=== PATIENT | male | born 1950 | race Caucasian/White ===

== ENCOUNTER → 2020-10-01 | Outpatient (CLI) | payer OTHER ==
[~2020-10-01] MED LIST: ADULT ASPIRIN R81 MG PO; EFFIENT10 MG PO; FISH OIL 1,0001 EAC9 PO; LIPITOR40 MG PO; MULTI VITAMIN1 EACH PO; NITROSTAT0.4 M1; TOPROL XL25 MG PO
== END ==
LOC: SJCVC 01:00
PROVIDERS: ATTEND Internal Medicine
DX: R94.31 Abnormal electrocardiogram [ECG] [EKG] (principal); R07.9 Chest pain, unspecified; I25.118 Atherosclerotic heart disease of native coronary artery with other forms of angina pectoris; E11.9 Type 2 diabetes mellitus without complications; E78.5 Hyperlipidemia, unspecified; R00.2 Palpitations; Z88.8 Allergy status to other drugs, medicaments and biological substances; Z79.82 Long term (current) use of aspirin; Z79.899 Other long term (current) drug therapy

== ENCOUNTER → 2020-10-02 | Outpatient (CLI) | payer OTHER | LOC: SJCVCIMAG 12:32 | PROVIDERS: ATTEND Internal Medicine | DX: R00.0 Tachycardia, unspecified (principal); I51.7 Cardiomegaly; I25.118 Atherosclerotic heart disease of native coronary artery with other forms of angina pectoris; Z79.82 Long term (current) use of aspirin; Z79.899 Other long term (current) drug therapy ==

== ENCOUNTER 2020-10-08 06:28 | Observation (INO) | payer OTHER ==
[~2020-10-08] VITALS: Ht 190.5 cm; Wt 128.5 kg
[2020-10-08 07:06] VITALS: BP 138/71
[2020-10-08 07:25] LABS: HEMATOCRIT 41.9 % (42.0-52.0); HEMOGLOBIN 13.9 gm/dL (14.0-18.0); MCH 28.1 pg (26.0-34.0); MCHC 33.1 g/dL (28.0-37.0); MCV 84.9 fL (80.0-100.0); RBC 4.94 mil/uL (4.50-6.00); RDW 15.1 % (10.5-14.5); WBC 6.7 thou/uL (4.0-11.0)
[2020-10-08] MEDS ORDERED: TOPROL XL25 MG PO (07:28)
[2020-10-08] MEDS ORDERED: LIPITOR40 MG PO (07:29)
[2020-10-08] MEDS ORDERED: NITROSTAT0.4 M1 (07:30)
[2020-10-08] MEDS ORDERED: ADULT ASPIRIN R81 MG PO (07:31)
[2020-10-08] MEDS ORDERED: FISH OIL 1,0001 EAC9 PO (07:32)
[2020-10-08] MEDS ORDERED: MULTI VITAMIN1 EACH PO (07:32)
[2020-10-08 07:34] LABS: CALCIUM 9.2 mg/dL (8.5-10.1); CREATININE 1.2 mg/dL (0.7-1.3)
[2020-10-08 13:30] VITALS: BP 117/72
[2020-10-08 13:45] VITALS: BP 131/71
--- NOTE | 2020-10-08 14:14 | NUR ---
ASSUMED CARE OF PT AT APPROX 1230 FROM [employer]. GROIN SITE CDI NO BRUISING OR HEMATOMA. NO C/O PAIN OR DISTRESS. PT ORIENTED TO ROOM AND SETTLE IN. ADMISSION COMPLETE. WILL CONTINUE TO MONITOR FOR CHANGE AND FOLLOW POC.
[2020-10-08 14:51] VITALS: BP 135/76
[2020-10-08] MEDS ORDERED: EFFIENT10 MG PO (15:22)
--- NOTE | 2020-10-08 16:12 | CATHLAB ---
[facility] [place] [address] INVASIVE PROCEDURE REPORT Name: ZEKE FELIPE JR Room #: 201-P ADM Jen Souza#: [id number] Admission: 10/08/20 Attend Phys: Riley Márquez MD, Discharge: Date of : 48 Report #: [id number] THIS REPORT FOR: cc: Braulio Pillai Gregory DO Mancuso, Gerald M. MD [facility] ~ APPROVED REPORT Study performed: 10/08/2020 07:44:07 Patient Details Patient Status: Out-Patient Room #: The patient is a 70 year-old male Event Personnel Riley Márquez System Configuration Specialist, Tracy Juárez RN RN, Patricia Broges RTR, Darin Reardon Roberta Monitor Procedures Performed Art Access - R femoral artery* Left Heart Cath w/or w/o Coronaries [id number] [facility] JEROMY Place w/wo Plasty Single CIRC 405395 JEROMY Place w/wo Plasty Single DIAG 910052 82231 Initial Mod Sed Same Phys/QHP Gr5y 207301 11392 Mod Sed Same Phys/QHP Ea 495049 Aortogram Abdominal Peripheral Angio 397044 Hemostasis w/mynx Indication Chest pain Procedure Narrative The Right Groin^ was infiltrated with 1% Lidocaine subcutaneous anesthesia. A PINNACLE 6FR Sheath #[id number] sheath was inserted into the RFA 6F^. Coronary angiography was performed using coronary diagnostic catheters. The right coronary system was accessed and visualized with a jr4 catheter. The left coronary system was accessed and visualized with a jl4 catheter. The left ventricle was accessed and visualized with a str pig catheter. Left ventriculogram was performed in 30 degree projection. There was no hematoma. Intraoperative Conscious Sedation Sedation start time: 847 Case end Time: 1000 Fentanyl 50 mcg Versed 1 mg [facility] [place] [address] INVASIVE PROCEDURE REPORT Name: ZEKE FELIPE Room #: 201-P [facility] M.R.#: [id number] Admission: 10/08/20 Attend Phys: Riley Márquez, Discharge: Date of : 48 Report #: [id number] Fluoro Time: 11.40 minutes Dose: DAP 00400.20 cGycm2 3863 mGy Contrast Type and Amount: Visipaque 280 ml IVUS A Guide Catheter was used to engage the LAUNCHER 6FR EBU 3.75 #859897 ostium. A diag Interventional Guidewire was used. A Luge Wire .014 x 182CM #[id number] was used. IVUS Findings Sprinter OTW 2.75 x 20 #[id number] Hemodynamics The aortic pressure is 137/64 mmHg with a mean of 41 mmHg. The left ventricular pressure is 130/5 mmHg with a mean of mmHg. The left ventricular end diastolic pressure is 14 mmHg. PCI Technique Lesion Percutaneous coronary intervention was performed on the ramus intermedius segment. A LAUNCHER 6FR EBU 3.75 SH #[id number] Guide Catheter was used to engage the cirx ostium. A Luge Wire .014 x 182CM #003698 Interventional Guidewire was used to cross the lesion. BALLOON DILATION A Balloon catheter Sprinter OTW 2.75 x 20 #[id number] was inserted and inflated up to 12.00atm for 17seconds. STENT DEPLOYMENT A stent RESOLUTE JULES OTW 3.5 X 18 #[id number] was inserted and inflated up to 12.00atm for 26seconds. Additional Inflation: 14.00atm for 23seconds. PCI Technique Lesion A LAUNCHER 6FR EBU 3.75 SH #[id number] Guide Catheter was used to engage the diag ostium. A Luge Wire .014 x 182CM #[id number] Interventional Guidewire was used to cross the lesion. BALLOON DILATION A Balloon catheter Sprinter OTW 2.75 x 20 #[id number] was inserted and inflated up to 8atm for 27seconds. STENT DEPLOYMENT A stent Sprinter OTW 2.75 x 20 #[id number] was inserted and inflated up to 12.00atm for 22seconds. Additional Inflation: 14atm for 11seconds. [facility] [address] [place] [address] INVASIVE PROCEDURE REPORT Name: ZEKE FELIPE Room #: 201-P [facility] M.R.#: [id number] Admission: 10/08/20 Attend Phys: Riley Márqeuz, Discharge: Date of : 48 Report #: [id number] Conclusion #1. Successful PTCA stent of the high-grade proximal dominant circumflex OM 95% lesion to 0 with placement of a 3.5 x 18 resolute Ross postdilated 3.6 mm YANDEL grade III flow filling large distal OM and dominant distal OM PDA. No other occlusive disease in the system. 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 #3 left main is large and free of disease giving rise to the LAD and circumflex. #4 the LAD extends to the apex is mildly diseased. 30 to 40% proximal irregularities mildly calcified. There is no occlusive disease this extends to the apex #5 there is a nondominant right coronary is relatively small in caliber does not have a high-grade mid vessel lesion and filling in very small PDA. There is minimal distribution this is the nondominant system. We will continue to observe this and could be intervened on with small diameter stent I suspect this is causing no symptoms. These 2 vessels stented above are large and significant distribution. #6 normal ventricular size and systolic function lower limits of normal EF 50 to 55% #7 abdominal aorta is intact no evidence of aneurysm formation. Recognitions and plan: Continue aggressive risk factor modification. Dual antiplatelet therapy has been initiated. Patient transferred to CCU in stable condition. Follow post coronary stent protocol. <ELECTRONICALLY SIGNED> By: Riley Márquez MD, FACC 10/08/201610 10 10 Riley Márquez MD, FACC /INF
[2020-10-08 19:29] VITALS: BP 120/57
[2020-10-08 20:15] VITALS: BP 120/57
[2020-10-09 00:07] VITALS: BP 128/67
[2020-10-09 00:20] VITALS: BP 128/67
--- NOTE | 2020-10-09 04:26 | NUR ---
SLEPT PART OF SHIFT. UP AD TARAS TO BATHROOM WITH STEADY GAIT. RIGHT GROIN REMAINS SOFT, NO BLEEDING OR HEMATOMA NOTED. DENIES COMPLAINTS OF CHEST PAIN OR SHORTNESS OF AIR. WORKING ON GOALS AND PLAN OF CARE FOR NOC. PROGRESSING TOWARDS DISCHARGE GOALS SLOWLY. CONTINUE TO ASSES CLOSELY.
[2020-10-09 04:27] VITALS: BP 120/59
[2020-10-09 04:30] VITALS: BP 120/59
[2020-10-09 05:35] LABS: HEMATOCRIT 39.5 % (42.0-52.0); HEMOGLOBIN 12.9 gm/dL (14.0-18.0); MCH 27.9 pg (26.0-34.0); MCHC 32.7 g/dL (28.0-37.0); MCV 85.4 fL (80.0-100.0); RBC 4.63 mil/uL (4.50-6.00); RDW 15.2 % (10.5-14.5); WBC 6.8 thou/uL (4.0-11.0)
[2020-10-09 05:38] LABS: ALBUMIN 3.5 g/dL (3.4-5.0); CALCIUM 8.7 mg/dL (8.5-10.1); CREATININE 1.1 mg/dL (0.7-1.3); POTASSIUM 4.1 mmol/L (3.5-5.1); TOTAL BILIRUBIN 0.5 mg/dL (0.2-1.0); TOTAL PROTEIN 6.6 g/dL (6.4-8.2)
[2020-10-09 05:57] LABS: TROPONIN-I 6.89 ng/mL (<0.06)
--- NOTE | 2020-10-09 07:44 | EKG ---
[place] [address] [facility] [place] [address] ELECTROCARDIOGRAM REPORT Name: ZEKE FELIPE Room #: 201-[facility] M.R.#: [id number] Admission: 10/08/20 Attend Phys: Riley Márquez MD, Discharge: Date of : 48 Report #: [id number] [facility] Test Date: 2020-10-09 Test Time: 06:59:54 Pat Name: ZEKE FELIPE Department: Room: 201 P Gender: M Jd Edwards: SHOSHANA : 1950 Requested By: Sunshine Sullivan Order Number: [id number] MD: Dominick Mcgarry Measurements Intervals Verdi Rate: 56 P: -16 SD: 181 QRS: -26 QRSD: 105 T: -49 QT: 439 QTc: 424 Interpretive Statements Sinus rhythm Abnormal R-wave progression, early transition T wave abnormality No previous ECG available for comparison Electronically Signed On 10-09-2020 7:44:30 INFORMATION TECHNOLOGY PROGRAM MANAGER by Dominick Mcgarry [email or web address] <ELECTRONICALLY SIGNED> By: Dominick Mcgarry MD, [facility] 10/09/20 0744 0659 Dominick Mcgarry MD, FACC /EPI
[2020-10-09 08:00] VITALS: BP 111/59
[2020-10-09 09:31] VITALS: BP 111/59
--- NOTE | 2020-10-09 09:57 | NUR ---
ASSUMED CARE SHIFT CHANGE. ASSESSMENT CHARTED.MEDS GIVEN. VSS. DENIES PAIN. R GROIN CDI NO HEMATOMA. PT UP ADLIB TOLERATING WELL. DC ORDERS IMPLEMENTED. DC PAPERWORK DISCUSSED WITH PT COMMUNICATING UNDERSTANDING. IV REMOVED TELE REMOVED. PT LEFT UNIT WITH ALL BELONGINGS.
== END 2020-10-09 10:00 | disposition home or self-care (01) ==
LOC: CATH 06:28 → 2N 12:39
PROVIDERS: Nurse Practitioner Adult Health; ADMIT Internal Medicine Cardiovascular Disease; ATTEND Internal Medicine Cardiovascular Disease
DX: I25.10 Atherosclerotic heart disease of native coronary artery without angina pectoris (principal); I10 Essential (primary) hypertension; E78.5 Hyperlipidemia, unspecified; E11.9 Type 2 diabetes mellitus without complications; Z79.82 Long term (current) use of aspirin; Z79.899 Other long term (current) drug therapy

== ENCOUNTER → 2020-12-17 | Outpatient (CLI) | payer OTHER | LOC: SJCVC 12:52 | PROVIDERS: ATTEND Internal Medicine | DX: I25.10 Atherosclerotic heart disease of native coronary artery without angina pectoris (principal); E11.9 Type 2 diabetes mellitus without complications; E78.5 Hyperlipidemia, unspecified; Z88.1 Allergy status to other antibiotic agents; Z79.82 Long term (current) use of aspirin; Z79.899 Other long term (current) drug therapy ==